=== PATIENT | female | born 1995 | race African-American/Black ===

== ENCOUNTER 2024-03-05 22:17 | Emergency (ER) | payer SELFPAY ==
[~2024-03-05] VITALS: Ht 175.3 cm; Wt 77.0 kg
[2024-03-05 22:21] VITALS: O2SAT 98
[2024-03-05] MEDS ORDERED: ACETAMINOPHEN 325MG TABLET PO ONE (22:45)
[2024-03-05] MEDS ORDERED: KETOROLAC 15MG/ML VIAL IM ONE (23:00)
[2024-03-05] MEDS ORDERED: AMOX-494 MT (23:19)
[2024-03-05] MEDS ORDERED: AMOXICILLIN 500MG CAPSULE PO ONE (23:30)
[2024-03-06 01:16] VITALS: TEMP 102.2
[2024-03-06] MEDS: ACETAMINOPHEN 325MG TABLET PO NR (01:16)
[2024-03-06 01:20] VITALS: BP 128/76; PULSE 78; RESP 16
[2024-03-06] MEDS: KETOROLAC 15MG/ML VIAL IM NR (01:20)
== END 2024-03-06 01:23 | disposition home or self-care (01) ==
LOC: ER 22:17
DX: J02.9 Acute pharyngitis, unspecified (principal); R50.9 Fever, unspecified
CPT/HCPCS: 99283; J1885; Z7610